=== PATIENT | male | born 1955 | race Caucasian/White ===

== ENCOUNTER → 2018-06-06 | Outpatient (CLI) | payer MEDICARE, MEDICAID ==
[~2018-06-06] MED LIST: ALBUAER3 IN; ALBUPOW26; AMLO5TAB13 PO; ASPI81CH43 PO; ATOR20TA50 PO; CHOL50007 PO; CLOP75TA41 PO; FOLI1TAB6 PO; FURO40TA PO; HYDR-531 PO; ISOS30TA4 PO; LOSA-46 PO; METO-169 PO; NITR0.4S29 SL; RESPMIS93; THIA100T10 PO; THIA100T30 PO
== END | disposition home or self-care (01) ==
LOC: EDBD → Rad HDHVI 09:20
PROVIDERS: ATTEND Internal Medicine Cardiovascular Disease
DX: I65.23 Occlusion and stenosis of bilateral carotid arteries (principal); I20.9 Angina pectoris, unspecified; J44.9 Chronic obstructive pulmonary disease, unspecified
CPT/HCPCS: 93306; 93880

== ENCOUNTER → 2018-06-07 | Outpatient (CLI) | payer MEDICARE, MEDICAID ==
[~2018-06-07] VITALS: Ht 175.3 cm; Wt 128.8 kg
[~2018-06-07] MED LIST changes: +ADENOSINE 108 MG in GIVE UN-DILUTED 0 ML IV ONE; +ADENOSINE 90 MG/30 ML INJ IV ONE; -ALBUAER3 IN; -AMLO5TAB13 PO; +AMLO5TAB2 PO; +ASPI81CH43 GT; -ASPI81CH43 PO; -CLOP75TA41 PO; -LOSA-46 PO; -THIA100T10 PO
== END | disposition home or self-care (01) ==
LOC: Rad HDHVI 14:02
PROVIDERS: ATTEND Internal Medicine Cardiovascular Disease
DX: I20.0 Unstable angina (principal); I25.2 Old myocardial infarction; I11.0 Hypertensive heart disease with heart failure; I50.23 Acute on chronic systolic (congestive) heart failure; J44.9 Chronic obstructive pulmonary disease, unspecified; Z87.891 Personal history of nicotine dependence
CPT/HCPCS: 78452; 93005; 96374; 96375; A9500; J0153

== ENCOUNTER → 2018-06-26 | Outpatient (CLI) | payer MEDICARE, MEDICAID ==
[~2018-06-26] MED LIST changes: -ADENOSINE 108 MG in GIVE UN-DILUTED 0 ML IV ONE; -ADENOSINE 90 MG/30 ML INJ IV ONE; +ALBUAER3 IN; +AMLO5TAB13 PO; -AMLO5TAB2 PO; -ASPI81CH43 GT; +ASPI81CH43 PO; +CLOP75TA41 PO; +LOSA-46 PO; +THIA100T10 PO
[2018-06-26 08:05] VITALS: BP 116/72
[2018-06-26 08:30] VITALS: BP 112/73
[2018-06-26 12:34] LABS: Basophils # (auto) 0 uL; Basophils % (auto) 0.4 % (0.0-2.0); Eosinophils # (auto) 0.2 uL; Eosinophils % (auto) 3.1 % (0.0-7.0); Hematocrit 46.6 % (41.0-53.0); Hemoglobin 16.3 g/dL (13.5-17.5); Lymphocytes # (auto) 1.5 uL; Lymphocytes % (auto) 20.2 % (10.0-50.0); Mean Corpuscular Hemoglobin 33.2 pg (28.0-32.0); Mean Corpuscular Hgb Conc. 34.9 g/dL (32.0-36.0); Mean Corpuscular Volume 95.3 fL (80.0-100.0); Monocytes # (auto) 0.6 uL; Monocytes % (auto) 7.7 % (0.0-12.0); Neutrophils % (auto) 68.6 % (37.0-80.0); Nucleated Red Blood Cells % 0.4 %; Platelet Count (auto) 105 10^3/uL (140-450); Red Cell Distribution Width 13.7 % (11.8-14.3); White Blood Cell 7.3 10^3/uL (4.4-10.8)
[2018-06-26 12:47] LABS: BUN/Creatinine Ratio 13.8; Calcium 9.1 mg/dL (8.5-10.1); Potassium 3.4 mmol/L (3.5-5.1)
[2018-06-26 12:48] LABS: INR 1.03 (0.9-1.15); Partial Thromboplastin Time 27.5 sec (23.78-33.04)
== END | disposition home or self-care (01) ==
LOC: EDBD → Rad HDHVI 07:54
PROVIDERS: ATTEND Internal Medicine Cardiovascular Disease
DX: Z01.818 Encounter for other preprocedural examination (principal); I10 Essential (primary) hypertension; D64.9 Anemia, unspecified; R79.1 Abnormal coagulation profile
CPT/HCPCS: 36415; 71046; 80048; 85025; 85610; 85730; 93005; G0463

== ENCOUNTER 2018-06-28 09:52 | Inpatient (IN) | payer MEDICARE, MEDICAID ==
[~2018-06-28] VITALS: Ht 175.3 cm; Wt 127.3 kg
[~2018-06-28 09:52] MED LIST changes: -ALBUPOW26; -CHOL50007 PO; -RESPMIS93; -THIA100T30 PO
[2018-06-28] MEDS ORDERED: IODIXANOL 320MG/ML 100ML BTL IV ONE (10:06)
[2018-06-28] MEDS ORDERED: LIDOCAINE 2%HCL (LOCAL ANESTH.) INJ 20ML MDV ONE (10:06)
[2018-06-28] MEDS ORDERED: IOHEXOL 350 MG/ML 100ML IJ ONE (10:08)
[2018-06-28] MEDS ORDERED: ANGIOMAX 250 MG VIAL IV ONE (10:20)
[2018-06-28] MEDS ORDERED: fentaNYL CITRATE 100 MCG/2 ML VL ONE (10:20)
[2018-06-28] MEDS ORDERED: SODIUM CHL 0.9% 50 ML ONE (10:21)
[2018-06-28] MEDS ORDERED: MIDAZOLAM HCL 1MG/1ML-2 ML VIAL ONE (10:21)
[2018-06-28] MEDS ORDERED: HYDROmorphone HCL 2 MG/ML VL ONE (10:40)
[2018-06-28] MEDS ORDERED: NITROGLYCERIN 0.4 MG SL TAB SL PRN (11:30)
[2018-06-28] MEDS ORDERED: ACETAMINOPHEN 500 MG TAB PO PRN (11:30)
[2018-06-28] MEDS ORDERED: ONDANSETRON HCL 4 MG/2 ML VIAL IV PRN (11:30)
[2018-06-28] MEDS ORDERED: HYDROcodone-ACET 5/325MG TAB PO PRN (11:30)
[2018-06-28] MEDS ORDERED: NITROGLYCERIN 0.4 MG SL TAB SL SCH (11:30)
[2018-06-28] MEDS ORDERED: MORPHINE SULF INJ 2 MG/ML SYRINGE 1ML IV PRN (11:30)
[2018-06-28 11:58] VITALS: BP 98/64
[2018-06-28] MEDS ORDERED: HYDROCODONE ACETAMINOPHEN PO SCH (12:00)
[2018-06-28 13:00] VITALS: BP 98/64
[2018-06-28] MEDS: HYDROcodone-ACET 10/325MG TAB PO PRN ×2 (15:24→19:57)
[2018-06-28 16:50] VITALS: BP 113/72
[2018-06-28] MEDS ORDERED: ALBUTEROL SULF 2.5 MG/0.5ML(0.5%) NEB SOLN NEB PRN (18:00)
[2018-06-28 21:40] VITALS: BP 118/75
[2018-06-28] MEDS ORDERED: ATORVASTATIN 20 MG TAB PO SCH (22:00)
[2018-06-28 22:13] VITALS: BP 118/75
[2018-06-29] MEDS: HYDROcodone-ACET 10/325MG TAB PO PRN ×3 (00:53→11:33)
[2018-06-29 04:46] VITALS: BP 113/67
[2018-06-29 09:00] VITALS: BP 98/64
[2018-06-29] MEDS ORDERED: CLOPIDOGREL BISULFATE 75 MG TAB PO SCH (10:00)
[2018-06-29] MEDS ORDERED: LOSARTAN POTASSIUM 50 MG TAB PO SCH (10:00)
[2018-06-29] MEDS ORDERED: ISOSORBIDE MONONITRATE 60 MG TAB PO SCH (10:00)
[2018-06-29] MEDS ORDERED: FUROSEMIDE 40 MG TAB PO SCH (10:00)
[2018-06-29] MEDS ORDERED: ASPirin 81 mg TAB PO SCH (10:00)
[2018-06-29] MEDS ORDERED: THIAMINE HCL 100 MG TAB PO SCH (10:00)
[2018-06-29] MEDS ORDERED: amLODIPine BESYLATE 5 MG TAB PO SCH (10:00)
[2018-06-29] MEDS ORDERED: FOLIC ACID 1 MG TAB PO SCH (10:00)
[2018-06-29] MEDS ORDERED: METOPROLOL SUCCINATE XL 50 MG TAB PO SCH (10:00)
[2018-06-29 13:00] VITALS: BP 111/66
[2018-06-29] MEDS ORDERED: MORPHINE SULFATE 4 MG/ML SYR/VIAL IV PRN (16:30)
[2018-06-29 16:38] VITALS: BP 107/61
== END 2018-06-29 18:18 | disposition home or self-care (01) | DRG 246 ==
LOC: EDBD → CATH 09:52 → TELE-WESTW 09:53
PROVIDERS: ADMIT Internal Medicine Cardiovascular Disease; ATTEND Internal Medicine Cardiovascular Disease
PROC: 027034Z Dilation of Coronary Artery, One Artery with Drug-eluting Intraluminal Device, Percutaneous Approach (ICD-10-PCS; principal; 2018-06-28)
PROC: 4A023N7 Measurement of Cardiac Sampling and Pressure, Left Heart, Percutaneous Approach (ICD-10-PCS; 2018-06-28)
PROC: B2111ZZ Fluoroscopy of Multiple Coronary Arteries using Low Osmolar Contrast (ICD-10-PCS; 2018-06-28)
PROC: B2151ZZ Fluoroscopy of Left Heart using Low Osmolar Contrast (ICD-10-PCS; 2018-06-28)
DX: I25.110 Atherosclerotic heart disease of native coronary artery with unstable angina pectoris (principal); I50.23 Acute on chronic systolic (congestive) heart failure; E78.5 Hyperlipidemia, unspecified; J44.9 Chronic obstructive pulmonary disease, unspecified; I73.9 Peripheral vascular disease, unspecified; Z87.891 Personal history of nicotine dependence; Z95.5 Presence of coronary angioplasty implant and graft; I11.0 Hypertensive heart disease with heart failure; I25.2 Old myocardial infarction; Z82.49 Family history of ischemic heart disease and other diseases of the circulatory system; Z86.73 Personal history of transient ischemic attack (TIA), and cerebral infarction without residual deficits
CPT/HCPCS: 36415; 71046; 80048; 85025; 85610; 85730; 87081; 92928; 93005; 93458; 99152; A6257; C1874; G0463; J2250; Q9967

== ENCOUNTER 2020-11-16 12:35 | Inpatient (IN) | payer MEDICAID, MEDICARE, OTHER ==
[~2020-11-16] VITALS: Ht 175.3 cm; Wt 78.5 kg
[~2020-11-16 12:35] MED LIST changes: +AMLO-489 PO; -AMLO5TAB13 PO; -CLOP75TA41 PO; +CLOP75TA70 PO; +FURO1TAB31 PO; -FURO40TA PO; -LOSA-46 PO; +LOSA-69 PO
[2020-11-16] MEDS ORDERED: ONDANSETRON HCL 4 MG/2 ML VIAL IV ONE (13:15)
[2020-11-16] MEDS ORDERED: MORPHINE SULFATE 4 MG/ML SYR/VIAL IV ONE ×2 (13:15→19:00)
[2020-11-16 13:19] LABS: Basophils # (auto) 0.1 10 ^3/uL (0-0.2); Basophils % (auto) 0.7 % (0.0-2.0); Eosinophils # (auto) 0.1 10 ^3/uL (0-0.8); Eosinophils % (auto) 0.6 % (0.0-7.0); Hematocrit 41.3 % (41.0-53.0); Hemoglobin 14.5 g/dL (13.5-17.5); Lymphocytes # (auto) 1.1 10 ^3/uL (0.4-5.4); Lymphocytes % (auto) 10.1 % (10.0-50.0); Mean Corpuscular Hemoglobin 32.4 pg (28.0-32.0); Mean Corpuscular Hgb Conc. 35.1 g/dL (32.0-36.0); Mean Corpuscular Volume 92.3 fL (80.0-100.0); Monocytes # (auto) 1.1 10 ^3/uL (0-1.3); Neutrophils # (auto) 8.9 10 ^3/uL (1.6-8.6); Neutrophils % (auto) 78.6 % (37.0-80.0); Nucleated Red Blood Cells % 0.2 %; Platelet Count (auto) 144 10^3/uL (140-450); Red Blood Cells 4.48 10^6/uL (4.5-5.90); Red Cell Distribution Width 13.6 % (11.8-14.3); White Blood Cell 11.3 10^3/uL (4.4-10.8)
[2020-11-16 13:37] LABS: Alanine Aminotransferase 42 U/L (16-61); Albumin 3.2 g/dL (3.4-5.0); Anion Gap 11 (5-15); Aspartate Aminotransferase 35 U/L (15-37); Blood Urea Nitrogen 16 mg/dL (7-18); Carbon Dioxide 23 mmol/L (21-32); Chloride 102 mmol/L (98-107); GFR African American 89 mL/min; GFR Non-African American 73 mL/min; Glucose 132 mg/dL (74-106); Potassium 3.4 mmol/L (3.5-5.1); Sodium 136 mmol/L (136-145)
[2020-11-16 13:45] LABS: Alkaline Phosphatase 92 U/L (45-117); Bilirubin, Total 1.5 mg/dL (0.2-1.0)
[2020-11-16 17:32] LABS: Urine Bacteria NONE SEEN /hpf (None Seen); Urine Blood Negative /uL (Negative); Urine Hyaline Cast FEW /lpf (0 - 2); Urine Mucus FEW (None Seen); Urine Specific Gravity 1.018 (1.001-1.035); Urine WBC 1 /hpf (0 - 3)
[2020-11-16] MEDS ORDERED: NITROGLYCERIN 0.4 MG SL TAB SL PRN (19:15)
[2020-11-16] MEDS ORDERED: ONDANSETRON HCL 4 MG/2 ML VIAL IV PRN (19:15)
[2020-11-16] MEDS ORDERED: MORPHINE SULF INJ 2 MG/ML SYRINGE 1ML IV PRN (19:15)
[2020-11-16] MEDS: D5W/SOD CHL 0.45%/KCL 20MEQ 1,000 ML IV SCH (20:00)
[2020-11-16] MEDS ORDERED: IOHEXOL 300 MG/ML 100ML BOTTLE IJ ONE (20:25)
[2020-11-17] MEDS: MORPHINE SULF INJ 2 MG/ML SYRINGE 1ML IV PRN ×3 (01:24→13:22)
[2020-11-17 05:00] VITALS: BP 124/77
[2020-11-17 07:45] VITALS: BP 121/76
[2020-11-17] MEDS: D5W/SOD CHL 0.45%/KCL 20MEQ 1,000 ML IV SCH (08:35)
[2020-11-17] MEDS ORDERED: PANTOPRAZOLE 40 MG TAB PO SCH (10:00)
[2020-11-17] MEDS ORDERED: THIAMINE HCL 100 MG TAB PO SCH (10:00)
[2020-11-17] MEDS ORDERED: ASPirin 81 mg TAB PO SCH (10:00)
[2020-11-17] MEDS ORDERED: METOPROLOL SUCCINATE XL 50 MG TAB PO SCH (10:00)
[2020-11-17] MEDS ORDERED: FOLIC ACID 1 MG TAB PO SCH (10:00)
[2020-11-17] MEDS ORDERED: ATORVASTATIN 20 MG TAB PO SCH (10:00)
[2020-11-17] MEDS ORDERED: amLODIPine BESYLATE 5 MG TAB PO SCH (10:00)
[2020-11-17] MEDS ORDERED: LOSARTAN POTASSIUM 50 MG TAB PO SCH (10:00)
[2020-11-17 13:00] VITALS: BP 113/75
[2020-11-17 13:39] VITALS: BP 113/75
== END 2020-11-17 14:15 | disposition home or self-care (01) | DRG 394 ==
LOC: ER 12:35 → TELE 12:36 → TELE-EAST 11-17 04:45
PROVIDERS: ADMIT Nurse Practitioner Acute Care; ATTEND Internal Medicine
DX: K65.4 Sclerosing mesenteritis (principal); I24.9 Acute ischemic heart disease, unspecified; K76.0 Fatty (change of) liver, not elsewhere classified; I10 Essential (primary) hypertension; F10.20 Alcohol dependence, uncomplicated; K74.60 Unspecified cirrhosis of liver; E87.6 Hypokalemia; E66.9 Obesity, unspecified; D72.829 Elevated white blood cell count, unspecified; E78.5 Hyperlipidemia, unspecified; I25.10 Atherosclerotic heart disease of native coronary artery without angina pectoris; I25.2 Old myocardial infarction; J44.9 Chronic obstructive pulmonary disease, unspecified; Z79.02 Long term (current) use of antithrombotics/antiplatelets; Z79.82 Long term (current) use of aspirin; Z79.899 Other long term (current) drug therapy; Z80.1 Family history of malignant neoplasm of trachea, bronchus and lung; Z82.49 Family history of ischemic heart disease and other diseases of the circulatory system; Z80.51 Family history of malignant neoplasm of kidney; Z85.038 Personal history of other malignant neoplasm of large intestine; Z87.891 Personal history of nicotine dependence; Z90.49 Acquired absence of other specified parts of digestive tract; Z95.5 Presence of coronary angioplasty implant and graft; Z68.25 Body mass index [BMI] 25.0-25.9, adult; N28.1 Cyst of kidney, acquired; Z20.822 Contact with and (suspected) exposure to COVID-19; R16.1 Splenomegaly, not elsewhere classified
CPT/HCPCS: 36415; 71045; 74177; 76700; 80053; 81001; 83605; 83690; 84484; 85025; 85652; 86141; 87426; 93005; 96374; 96375; 96376; G0378; J2405

== ENCOUNTER 2023-11-07 02:43 | Emergency (ER) | payer OTHER ==
[~2023-11-07] VITALS: Ht 175.3 cm; Wt 104.5 kg
[~2023-11-07 02:43] MED LIST changes: -AMLO-489 PO; +AMLO1TAB22 PO; -ASPI81CH43 PO; +FOLI-119 PO; -FOLI1TAB6 PO; +ISOS1TAB28 PO; -ISOS30TA4 PO; -LOSA-69 PO; +LOSA50TA46 PO; -METO-169 PO; +METO-289 PO
[2023-11-07 03:02] VITALS: BP 135/69; PULSE 66; RESP 16; TEMP 98
[2023-11-07 03:30] VITALS: O2SAT 95
[2023-11-07] MEDS ORDERED: TETRACAINE HCL 0.5% OPTH(EYE) SOLN 4ML LEFTEYE ONE (03:30)
[2023-11-07] MEDS ORDERED: FLUORESCEIN SOD OPTH TEST STRIP LEFTEYE ONE (03:30)
[2023-11-07] MEDS ORDERED: ERY05OO OP (03:39)
== END 2023-11-07 04:10 | disposition home or self-care (01) ==
LOC: ER 02:43
DX: S05.02XA Injury of conjunctiva and corneal abrasion without foreign body, left eye, initial encounter (principal); J44.9 Chronic obstructive pulmonary disease, unspecified; I25.2 Old myocardial infarction; Z86.73 Personal history of transient ischemic attack (TIA), and cerebral infarction without residual deficits; Z87.891 Personal history of nicotine dependence; Z79.2 Long term (current) use of antibiotics; Z79.899 Other long term (current) drug therapy; X58.XXXA Exposure to other specified factors, initial encounter; Y93.89 Activity, other specified; Y92.89 Other specified places as the place of occurrence of the external cause; Y99.8 Other external cause status

== ENCOUNTER 2025-02-05 15:22 | Emergency (ER) | payer OTHER ==
[~2025-02-05] VITALS: Ht 180.3 cm; Wt 110.0 kg
[~2025-02-05 15:22] MED LIST changes: +ERY05OO OP; +LOSA-534 PO; -LOSA50TA46 PO
[2025-02-05 16:10] VITALS: PULSE 46; RESP 10; O2SAT 95
[2025-02-05] MEDS: SODIUM CHLORIDE 0.9% 1,000 ML IV ONE ×2 (16:23→20:35)
[2025-02-05 16:29] LABS: Basophils # (auto) 0.1 10 ^3/uL (0-0.2); Basophils % (auto) 0.7 % (0.0-2.0); Eosinophils # (auto) 0.2 10 ^3/uL (0-0.8); Eosinophils % (auto) 2.2 % (0.0-7.0); Hemoglobin 13.8 g/dL (13.5-17.5); Lymphocytes # (auto) 1.7 10 ^3/uL (0.4-5.4); Lymphocytes % (auto) 22.9 % (10.0-50.0); Mean Corpuscular Hemoglobin 32.2 pg (28.0-32.0); Mean Corpuscular Hgb Conc. 35.3 g/dL (32.0-36.0); Mean Corpuscular Volume 91.2 fL (80.0-100.0); Monocytes # (auto) 0.8 10 ^3/uL (0-1.3); Monocytes % (auto) 10.6 % (0.0-12.0); Neutrophils # (auto) 4.6 10 ^3/uL (1.6-8.6); Neutrophils % (auto) 63.6 % (37.0-80.0); Nucleated Red Blood Cells % 0.1 %; Platelet Count (auto) 164 10^3/uL (140-450); Red Blood Cells 4.28 10^6/uL (4.5-5.90); Red Cell Distribution Width 13.1 % (11.8-14.3); White Blood Cell 7.3 10^3/uL (4.4-10.8)
[2025-02-05 16:37] LABS: Potassium 3.7 mmol/L (3.5-5.1); Sodium 142 mmol/L (136-145)
[2025-02-05 16:38] LABS: Anion Gap 7 (5-15); Calcium 9.5 mg/dL (8.7-10.4); Carbon Dioxide 27 mmol/L (20-31)
[2025-02-05 16:43] LABS: BUN/Creatinine Ratio 10.8 (10.0-20.0); Blood Urea Nitrogen 18 mg/dL (9-23)
[2025-02-05 16:44] LABS: Chloride 108 mmol/L (98-107); Glucose 110 mg/dL (74-106)
--- NOTE | 2025-02-05 16:47 | ED.PDOC ---
History of Present Illness HPI Comments 69-year-old male brought in by EMS from his primary physician's office where he was visiting for a follow-up on labs that were drawn 2 weeks ago. Patient was found to have low blood pressure in the 60s systolic, so his primary physician had him transferred by ambulance to our ER. Patient denies any chest pain, shortness of breath, dizziness, vision changes or focal weakness. He does note mild fatigue. Patient states he has a history of high blood pressure and takes isosorbide, metoprolol and amlodipine. Chief Complaint: Low Blood Pressure Time Seen by MD: 15:55 Primary Care Provider: RI Reviewed Notes: Nurses Notes, Medications, Allergies Allergies: Coded Allergies: Zolpidem (Verified Allergy, Unknown, 02/05/25) CONFUSION Home Meds Active Scripts Erythromycin (Erythromycin) 5 Mg/Gm Oin, 1 MG OP 6XD for 7 Days, #1 OIN 0 Refills Prov:SB GRAY 11/07/23 Reported Medications Albuterol Sulfate (VENTOLIN MDI) 90 Mcg Ih, 90 MCG IN Q6HP PRN for COPD for 30 Days, MCG 06/26/18 Thiamine Hcl (VITAMIN B-1) 100 Mg Tb, 100 MG PO DAILY 06/26/18 Losartan Potassium (Losartan Potassium) 50 Mg Tab, 1 TAB PO DAILY, #30 TAB 5 Refills 06/26/18 Clopidogrel Bisulfate (CLOPIDOGREL) 75 Mg Tab, 75 MG PO DAILY for 30 Days, MG 06/26/18 Metoprolol Succinate (Metoprolol Succinate Er) 50 Mg Tab, 50 MG PO DAILY, TAB 12/22/16 Furosemide (Lasix) 40 Mg Tab, 40 MG PO DAILY, TAB 12/22/16 Hydrocodone-Acetaminophen ([place] 10-325 mg) 1 Tab Tab, 1 TAB PO QIDP, TAB 12/22/16 Nitroglycerin (Nitrostat) 0.4 Mg Sub, 0.4 MG SL PRN 12/22/16 Folic Acid (Folic Acid) 1 Mg Tab, 1 MG PO DAILY for 30 Days, MG 12/22/16 Amlodipine Besylate (Amlodipine Besylate) 5 Mg Tab, 10 MG PO DAILY for 30 Days, MG 12/22/16 Atorvastatin Calcium (ATORVASTATIN CALCIUM) 20 Mg Tab, 1 TAB PO DAILY, #30 TAB 5 Refills 12/22/16 Isosorbide Mononitrate (Isosorbide Mononitrate Er) 30 Mg Tab, 30 MG PO DAILY for 30 Days, MG 12/22/16 Information Source: Patient Mode of Arrival: EMS Severity: Moderate Timing: Minutes Duration: Since onset, Minutes Prehospital treatment: None Past Medical History PAST MEDICAL HISTORY: COPD, CVA, LA Past Medical History (Other): Neuropathy bilateral legs Surgical History: PTCA Surgical History (Other): Stent x3, finger amputition, Left Knee, Left Shoulder Family History Family History: Reviewed,noncontributory to illness Social History Smoker: Non-Smoker Alcohol: Denies ETOH Use Drugs: Denies Drug Use Lives In: Home Constitutional: reports: others (Low BP, ); denies: chills, diaphoresis, fatigue, fever, malaise, sweats, weakness EENTM: denies: blurred vision, double vision, ear bleeding, ear discharge, ear drainage, ear pain, ear ringing, eye pain, eye redness, hearing loss, mouth pain, mouth swelling, nasal discharge, nose bleeding, nose congestion, nose pain, photophobia, tearing, throat pain, throat swelling, voice changes, others Respiratory: denies: cough, hemoptysis, orthopnea, SOB at rest, shortness of breath, SOB with excertion, stridor, wheezing, others Cardiovascular: denies: chest pain, dizzy spells, diaphoresis, Dyspnea on exertion, edema, irregular heart beat, left arm pain, lightheadedness, palpitations, PND, syncope, others Gastrointestinal: denies: abdomen distended, abdominal pain, blood streaked bowels, constipated, diarrhea, dysphagia, difficulty swallowing, hematemesis, melena, nausea, poor appetite, poor fluid intake, rectal bleeding, rectal pain, vomiting, others Genitourinary: denies: burning, dysuria, flank pain, frequency, hematuria, i ncontinence, penile discharge, penile sore, pain, testicle pain, testicle swelling, urgency, others Neurological: denies: dizziness, fainting, headache, left sided numbness, left sided weakness, numbness, paresthesia, pre-existing deficit, right sided numbness, right sided weakness, seizure, speech problems, tingling, tremors, weakness, others Musculoskeletal: denies: back pain, gout, joint pain, joint swelling, muscle pain, muscle stiffness, neck pain, others Integumetry: denies: bruises, change in color, change in hair/nails, dryness, laceration, lesions, lumps, rash, wounds, others Allergic/Immunocompromised: denies: Difficulty Healing, Frequent Infections, Hives, Itching, others Hematologic/Lymphatic: denies: anemia, blood clots, easy bleeding, easy bruising, swollen glands, others Endocrine: denies: excessive hunger, excessive sweating, excessive thirst, excessive urination, flushing, intolerance to cold, intolerance to heat, unexplained weight gain, unexplained weight loss, others Psychiatric: denies: anxiety, bipolar disorder, depression, hopeless, panic disorder, schizophrenia, sleepless, suicidal, others All Other Systems: Reviewed and Negative Physical Exam General Appearance: No Apparent Distress HEENT: Other (Vitals and face symmetric. Moist mucous membranes.) Neck: Full Range of Motion, Normal Inspection Respiratory: Lungs Clear, No Accessory Muscle Use, No Respiratory Distress, Normal Breath Sounds Cardiovascular: Bradycardia, No Edema, No JVD Breast Exam: Deferred Gastrointestinal: Non Tender, Soft Genitalia: Deferred Pelvic: Deferred Rectal: Deferred Extremities: Normal inspection, Normal range of motion, Non-tender, No pedal edema Neurologic: Alert (Oriented x4), Normal Affect, Normal Mood, Other (Ambulatory) Cerebellar Function: NOT DONE Reflexes: NOT DONE Skin: Dry, Normal Color, Warm Lymphatic: NOT DONE Was a procedure done? Was a procedure done?: No EKG EKG : Comments Sinus bradycardia, rate 48, ME prolonged at 202, QRS and QTC normal, normal axis, possible old anteroseptal infarct, no ST/T changes. Differential Dx Considerations may include: Arrhythmia, LA, infection, sepsis, dehydration/hypovolemia, beta-sushant overdose, electrolyte imbalance, among others X-Ray, Labs, Meds, VS Vital Signs Date Time Temp Pulse Resp B/P (MAP) Pulse Ox O2 Delivery O2 Flow Rate FiO2 02/05/25 21:00 44 14 109/50 (69) 93 02/05/25 19:30 98.5 43 12 113/62 (79) 94 98.5 02/05/25 19:30 47 12 95 Room Air* 0 21 02/05/25 18:01 97.9 46 18 98/57 (71) 83 97.9 02/05/25 17:30 48 14 99/55 (70) 94 02/05/25 17:00 47 12 96/54 (68) 95 02/05/25 16:52 48 17 82/45 (57) 91 02/05/25 16:10 47 02/05/25 16:10 97.5 46 10 87/46 (60) 95 97.5 02/05/25 16:10 46 10 95 Room Air* 0 21 02/05/25 15:30 97.1 50 18 96/63 (74) 94 97.1 02/05/25 15:25 48 Lab Test 02/05/25 17:55 02/05/25 17:26 02/05/25 16:20 Range/Units Urine Color Light-yellow Yellow Urine Clarity Clear Clear Urine pH 6.5 5.0-9.0 Urine Specific [place] 1.006 1.001-1.035 Urine Protein Negative Negative Urine Ketones Negative Negative Urine Blood Negative Negative /uL Urine Nitrite Negative Negative Urine Bilirubin Negative Negative Urine Urobilinogen Normal Negative mg/dL Urine Leukocyte Esterase Negative Negative /uL Urine RBC None seen 0 - 3 /hpf Urine Microscopic WBC < 1 0-3 /HPF Urine Squamous Epithelial Cells Few <5 /hpf Urine Bacteria None seen None Seen /hpf Urine Glucose Normal Normal mg/dL Troponin I High Sensitivity 6 6 </=54 ng/L White Blood Count 7.3 4.4-10.8 10^3/uL Red Blood Count 4.28 L 4.5-5.90 10^6/uL Hemoglobin 13.8 13.5-17.5 g/dL Hematocrit 39.0 L 41.0-53.0 % Mean Corpuscular Volume 91.2 80.0-100.0 fL Mean Corpuscular Hemoglobin 32.2 H 28.0-32.0 pg Mean Corpuscular Hemoglobin Concent 35.3 32.0-36.0 g/dL Red Cell Distribution Width 13.1 11.8-14.3 % Platelet Count 164 140-450 10^3/uL Mean Platelet Volume 8.5 6.9-10.8 fL Neutrophils (%) (Auto) 63.6 37.0-80.0 % Lymphocytes (%) (Auto) 22.9 10.0-50.0 % Monocytes (%) (Auto) 10.6 0.0-12.0 % Eosinophils (%) (Auto) 2.2 0.0-7.0 % Basophils (%) (Auto) 0.7 0.0-2.0 % Neutrophils # (Auto) 4.6 1.6-8.6 10 ^3/uL Lymphocytes # (Auto) 1.7 0.4-5.4 10 ^3/uL Monocytes # (Auto) 0.8 0-1.3 10 ^3/uL Eosinophils # (Auto) 0.2 0-0.8 10 ^3/uL Basophils # (Auto) 0.1 0-0.2 10 ^3/uL Nucleated Red Blood Cells 0.1 % Sodium Level 142 136-145 mmol/L Potassium Level 3.7 3.5-5.1 mmol/L Chloride Level 108 H 98-107 mmol/L Carbon Dioxide Level 27 20-31 mmol/L Anion Gap 7 5-15 Blood Urea Nitrogen 18 9-23 mg/dL Creatinine 1.67 H 0.700-1.30 mg/dL Glomerular Filtration Rate Calc 44 >90 mL/min BUN/Creatinine Ratio 10.8 10.0-20.0 Serum Glucose 110 H 74-106 mg/dL Lactic Acid Level 1.3 0.4-2.0 mmol/L Calcium Level 9.5 8.7-10.4 mg/dL B-Type Natriuretic Peptide 25.53 0-100 pg/mL Current Medications Medications (Trade) Dose Ordered Sig/Mabel Route Start Time Stop Time Status Last Admin Sodium Chloride 1,000 ml @ 1,000 mls/hr Q1H ONCE IV 02/05/25 16:15 02/05/25 17:14 DC 02/05/25 16:23 Sodium Chloride 1,000 ml @ 1,000 mls/hr Q1H ONCE IV 02/05/25 19:15 02/05/25 20:14 DC 02/05/25 20:35 Oxycodone/ Acetaminophen (Percocet 5/ 325MG Tablet) 1 tab ONCE ONCE PO 02/05/25 20:45 02/05/25 20:46 DC 02/05/25 21:40 PROCEDURE(s): CXRP - CHEST PORTABLE REASON: ns ORDER NUMBER(s): [id number], ACCESSION NUMBER(s): [id number] EXAM: XR Chest, 1 View CLINICAL INDICATION: ns TECHNIQUE: Frontal view of the chest. COMPARISON: CHEST PORTABLE on DOS: 11/16/20 FINDINGS: LUNGS AND PLEURAL SPACES: Unremarkable. No consolidation. No pneumothorax. HEART: Unremarkable. No cardiomegaly. MEDIASTINUM: Unremarkable. Normal mediastinal contour. BONES/JOINTS: Unremarkable. No acute fracture. OTHER FINDINGS: . None. IMPRESSION: No acute cardiopulmonary process. X-Ray, Labs, Meds, VS Comment 69-year-old male with a history of hypertension, thyroid disease, mi x3, CVA x3 and TIA referred by primary physician for evaluation of hypotension and fatigue. Patient also states he was told by his primary doctor that his potassium was low. Vitals remarkable for BP 96/63 Exam unremarkable Rhythm strip independently interpreted by me: Sinus bradycardia, rate 48, no ectopy. Chest x-ray IMPRESSION: No acute cardiopulmonary process. CBC unremarkable, metabolic panel remarkable for creatinine 1.67, lactate normal, troponin negative x2, BNP normal, UA negative Patient treated with the following in the ED: 2 L 0.9 normal saline IV bolus. On re-evaluation, patient's blood pressure is 110/49. Heart rate is 46. Plan was to admit the patient for observation and Cardiology evaluation. Case discussed with Dr. Thomas, who requested the patient be discharged home. She will arrange for the patient to follow-up with cardiology as an outpatient. I advised the patient to discontinue metoprolol until further evaluation by Cardiology. He was advised to follow-up with his primary physician tomorrow, and to return immediately to ER or call 911 for chest pain, shortness of breath, dizziness, weakness or any other concern. Time of 1ST Reevaluation: 16:25 Reevaluation 1ST: Unchanged Time of 2ND Reevaluation: 21:47 Reevaluation 2ND: Improved Patient Education/Counseling: Diagnosis, Treatment, Prognosis Family Education/Counseling: No Family Present Departure 1 Departure Time of Disposition: 19:15 Impression: Primary Impression: Bradycardia Additional Impression: Transient hypotension Disposition: 01 HOME / SELF CARE / HOMELESS Condition: Stable Additional Instructions: Your blood tests were unremarkable. Your chest x-ray was normal. Your EKG showed you have a slow heart rate. Your blood pressure is now stable. Discontinue metoprolol until evaluated by a water aerobics instructor. Your blood pressure at home prior to taking your blood pressure medication. If your blood pressure is below 95 systolic, do not take your blood pressure medication and contact your doctor. Follow-up with your primary doctor in 1-2 days. Return to ER for chest pain, shortness of breath, weakness, dizziness, vision changes or any other concern. Discharged With: Self Critical Care Note Critical Care Time?: No Stability Stability form required: No Heart Score Heart Score: Heart Score Response (Comments) Value History N/A 0 EKG N/A 0 Age N/A 0 Risk Factors N/A 0 Troponin N/A 0 Total 0 I personally scribed for ARELY SINGH MD ([email or web address]) on 02/05/25 at 16:47. Electronically submitted by Fransisco Meléndez ([employer]). I personally scribed for ARELY SINGH MD ([email or web address]) on 02/05/25 at 17:36. Electronically submitted by Fransisco Meléndez ([email or web address]). ARELY SINGH MD Feb 05, 2025 16:47
--- NOTE | 2025-02-05 16:50 | DVH ---
EXAM: XR Chest, 1 View CLINICAL INDICATION: ns TECHNIQUE: Frontal view of the chest. COMPARISON: CHEST PORTABLE on DOS: 11/16/20 FINDINGS: LUNGS AND PLEURAL SPACES: Unremarkable. No consolidation. No pneumothorax. HEART: Unremarkable. No cardiomegaly. MEDIASTINUM: Unremarkable. Normal mediastinal contour. BONES/JOINTS: Unremarkable. No acute fracture. OTHER FINDINGS: . None. IMPRESSION: No acute cardiopulmonary process.
[2025-02-05 18:04] LABS: Urine Bacteria None Seen /hpf (None Seen)
[2025-02-05 18:21] LABS: Urine Blood Negative /uL (Negative); Urine Clarity Clear (Clear); Urine Color Light-Yellow (Yellow); Urine Protein, UAD Negative (Negative); Urine Specific Gravity 1.006 (1.001-1.035); Urine Squamous Epithelial Cell FEW /hpf (<5); Urine Urobilinogen Normal (Negative); Urine WBC < 1 /HPF (0-3); Urine pH 6.5 (5.0-9.0)
--- NOTE | 2025-02-05 18:40 | ECG ---
[facility] Test Date: 2025-02-05 Test Time: 15:23:45 Pat Name: BINH HARE Department: ED Room: Gender: M Director Of Diagnostic Imaging: KARON : 1955 Requested By: ARELY ALLEN Order Number: [id number] Reading MD: Rhys Ott Measurements Intervals [place] Rate: 48 P: 80 MN: 202 QRS: 49 QRSD: 101 T: 48 QT: 472 QTc: 422 Interpretive Statements Sinus bradycardia Anterior infarct, old Electronically Signed On 02-06-2025 8:37:42 PDT by Rhys Ott Please click the below link to view image of tracing.
[2025-02-05 19:30] VITALS: PULSE 47; RESP 12; O2SAT 95
[2025-02-05 21:00] VITALS: BP 109/50; PULSE 44; RESP 14; O2SAT 93
[2025-02-05] MEDS: OXYCODONE W/ ACETAMINOPHEN 5/325MG TABLET PO ONE (21:40)
--- NOTE | 2025-02-06 13:00 | DVHDS2 ---
Physician Discharge Progress N Final Diagnosis: SInus bradycardia Operations or Procedures: Operations or Procedures none Other Interventions Other Interventions EKG, Lab results, CXR Consultations: Consultations none Commentary: Commentary 69 y.o. male with HTN (takes Metoprolol, Amlodipine, Isosorbide) was referred from his primary physician's office for further evaluation after they checked his blood pressure and found that he was hypotensive. Patient visited his MD to follow up his lab results that were drawn 2 weeks ago. Patient stated that he felt tired but denied any other complaints. On arrival patient's BP was 82/45. Patient was also was found to have sinus bradycardia on EKG. He was given 2L of NS and his BP normalized. His condition remained stable and he was discharged home with recommendation to f/u with a photographer apprentice and hold Metoprolol until then. Condition on Discharge: Stable Disposition: Home SNF Discharge Will this Physician continue t: No Discharge Instructions: Diet: Cardiac 2g Na,low cholest Activity: No Restrictions, As Tolerated Follow Up/Referral: Cardiology appointment will be scheduled by [facility] Medications: Continue home medications except Metoprolol. Follow Up Care: Discharge Statement: "Patient was advised to return to the ER or call 911 if any headaches, dizziness, shortness of breath, chest pain, abdominal pain, bleeding, fevers, or worsening of medical condition. Patient was counseled about treatment plan, medications, possible side effects, patientverbalized understanding. All questions were answered to the best of my ability. This discharge took greater then 30 minutes in planning, reviewing documentation, counseling the patient, and discussing with other team members." SUSY SAUL MD February 06, 2025 13:00
== END 2025-02-05 22:14 | disposition home or self-care (01) ==
LOC: EDBD 15:22 → ER 15:26
DX: R00.1 Bradycardia, unspecified (principal); I95.89 Other hypotension; I10 Essential (primary) hypertension; J44.9 Chronic obstructive pulmonary disease, unspecified; I25.2 Old myocardial infarction; Z79.899 Other long term (current) drug therapy; Z79.02 Long term (current) use of antithrombotics/antiplatelets; Z98.890 Other specified postprocedural states; Z88.1 Allergy status to other antibiotic agents
CPT/HCPCS: 36415; 71045; 80048; 81001; 83605; 83880; 84484; 85025; 93005; 96360; 96361; 99285; J7030

== ENCOUNTER 2025-09-12 21:04 | Emergency (ER) | payer OTHER ==
[~2025-09-12] VITALS: Ht 175.3 cm; Wt 104.5 kg
--- NOTE | 2025-09-12 21:20 | ED.PDOC ---
HPI Comments HPI: Poor Historian. 70-year-old male complains midsternal chest pain nonradiating with the associated shortness of breath that happened today after minimal exertion. Patient has been having chest pain for the last five months but got worse today. He is waiting to be seen by Cardiology again for additional coronary stents placement. He already has three stents in place. Patient does not know if he is on blood thinners or not. Past Medical History: Hypertension, hyperlipidemia, coronary artery disease, Past Surgical History: Cardiac stents REVIEW OF SYSTEMS: CONSTITUTIONAL: Denies acute: fever, diaphoresis, chills, generalized weakness. HEAD: Denies acute: headache, photophobia Eyes: Denies acute: Double vision, vision loss, eye pain, eye discharge. EARS: Denies acute: tinnitus, hearing loss, ear discharge, ear pain, THROAT: Denies acute: sore throat, swelling, difficulty swallowing , pain with swallowing, change in voice. NECK: Denies acute: neck pain, neck swelling, stiff neck. HEART: Denies acute : , palpitations, LUNGS: Denies acute: wheezing, cough, hemoptysis ABDOMEN: Denies acute: abdominal pain, Nausea, Vomiting, diarrhea, melena , hematemesis, hematochezia SKIN: Denies acute: rash, redness, lesions, itchiness. EXTREMITIES: Denies acute: calf pain, numbness, tingling, weakness, denies pain in extremity. Denies acute: Low back pain. Neuro: Denies acute: focal neurological deficit, motor or sensory focal neurological deficit, tremors, seizure like activity, confusion, dizziness, change in mental status, loss of bowel or bladder function, cauda equina like symptoms. : Denies acute: dysuria, hematuria, flank pain, increase in urinary frequency. PSYCH: Denies acute: hallucination, suicidal ideation, homicidal ideation. PHYSICAL EXAM: General: ----mild----acute distress, awake and alert. Head: normocephalic, atraumatic. No raccoon's eyes, no cuadra sign. Neck: supple, trachea is midline, no swelling. Throat: Normal phonation. Eyes:, no erythema, no purulent discharge, no proptosis, no icterus. Heart: regular rate, regular rhythm, no significant murmur appreciated. Lungs: no apparent respiratory distress, Able to speak in full sentences. No wheezing, no rhonchi, no crackles. No stridors Clear to auscultation bilaterally. Abdomen: non tender to palpation, non distended, soft, no guarding, no rebound, + bowel sounds. Obese Neuro: Awake, Alert, oriented to name, self, situation, follows commands GCS=15. Speech is normal. Skin: no petechia, no purpura, no cyanosis, non-pale, not jaundice. Lower extremities: --trace bilateral - Pitting edema no deformity, no focal swelling, no calf TTP. Makes eye contact. moves all four extremities. Face: no apparent facial droop. Ambulating in the ED independently. ED COURSE: DISCLAIMER: This medical document was created using an electronic medical record system with voice recognition software and computerized dictation system. Although this document has been carefully reviewed, there might still be some phonetic and typographical errors. Occasional wrong-word or "sound-alike" substitutions may have occurred due to the inherent limitations of voice recognition software. These areas are purely typographical due to imperfections of the software programs and do not reflect any compromise in the patient's medical care. Please read the chart carefully and recognize, using context, where these substitutions have occurred. Chief Complaint: Chest Pain Time Seen by MD: 21:11 Primary Care Provider: PA Reviewed Notes: Allergies Allergies: Coded Allergies: Zolpidem (Verified Allergy, Unknown, 02/05/25) CONFUSION Home Meds Active Scripts Erythromycin (Erythromycin) 5 Mg/Gm Oin, 1 MG OP 6XD for 7 Days, #1 OIN 0 Refills Prov:SB GRAY 11/07/23 Reported Medications Albuterol Sulfate (VENTOLIN MDI) 90 Mcg Ih, 90 MCG IN Q6HP PRN for COPD for 30 Days, MCG 06/26/18 Thiamine Hcl (VITAMIN B-1) 100 Mg Tb, 100 MG PO DAILY 06/26/18 Losartan Potassium (Losartan Potassium) 50 Mg Tab, 1 TAB PO DAILY, #30 TAB 5 Refills 06/26/18 Clopidogrel Bisulfate (CLOPIDOGREL) 75 Mg Tab, 75 MG PO DAILY for 30 Days, MG 06/26/18 Metoprolol Succinate (Metoprolol Succinate Er) 50 Mg Tab, 50 MG PO DAILY, TAB 12/22/16 Furosemide (Lasix) 40 Mg Tab, 40 MG PO DAILY, TAB 12/22/16 Hydrocodone-Acetaminophen ([place] 10-325 mg) 1 Tab Tab, 1 TAB PO QIDP, TAB 12/22/16 Nitroglycerin (Nitrostat) 0.4 Mg Sub, 0.4 MG SL PRN 12/22/16 Folic Acid (Folic Acid) 1 Mg Tab, 1 MG PO DAILY for 30 Days, MG 12/22/16 Amlodipine Besylate (Amlodipine Besylate) 5 Mg Tab, 10 MG PO DAILY for 30 Days, MG 12/22/16 Atorvastatin Calcium (ATORVASTATIN CALCIUM) 20 Mg Tab, 1 TAB PO DAILY, #30 TAB 5 Refills 12/22/16 Isosorbide Mononitrate (Isosorbide Mononitrate Er) 30 Mg Tab, 30 MG PO DAILY for 30 Days, MG 12/22/16 Information Source: Patient Mode of Arrival: Ambulatory Past Medical History PAST MEDICAL HISTORY: COPD, CVA, NC Surgical History: PTCA Family History Family History: Reviewed,noncontributory to illness Social History Smoker: Non-Smoker Alcohol: Denies ETOH Use Drugs: Denies Drug Use Lives In: Home Was a procedure done? Was a procedure done?: No CP Differential Dx Differential Diagnosis: N/A Differential Diagnosis: Other (Ddx include but not limitied to gastritis, musculoskeletal pain, radiculopathy, atypical chest pain, dissection, aneurysm, ACS, unstable angina, hiatal hernia, GERD, anxiety, costochondritis, PE, p neumothroax, neoplasm, cardiac ischemia, drug abuse, anemia.) X-Ray, Labs, Meds, VS Vital Signs Date Time Temp Pulse Resp B/P (MAP) Pulse Ox O2 Delivery O2 Flow Rate FiO2 09/13/25 01:09 98.3 62 19 128/83 (98) 94 98.3 09/12/25 21:07 98.1 73 20 128/65 94 98.1 Lab Test 09/13/25 00:16 09/12/25 22:16 09/12/25 21:16 Range/Units Troponin I High Sensitivity 19 17 17 </=54 ng/L White Blood Count 8.7 4.4-10.8 10^3/uL Red Blood Count 4.76 4.5-5.90 10^6/uL Hemoglobin 15.6 13.5-17.5 g/dL Hematocrit 44.3 41.0-53.0 % Mean Corpuscular Volume 93.1 80.0-100.0 fL Mean Corpuscular Hemoglobin 32.8 H 28.0-32.0 pg Mean Corpuscular Hemoglobin Concent 35.2 32.0-36.0 g/dL Red Cell Distribution Width 13.6 11.8-14.3 % Platelet Count 170 140-450 10^3/uL Mean Platelet Volume 8.3 6.9-10.8 fL Neutrophils (%) (Auto) 60.6 37.0-80.0 % Lymphocytes (%) (Auto) 28.2 10.0-50.0 % Monocytes (%) (Auto) 9.2 0.0-12.0 % Eosinophils (%) (Auto) 1.5 0.0-7.0 % Basophils (%) (Auto) 0.5 0.0-2.0 % Neutrophils # (Auto) 5.3 1.6-8.6 10 ^3/uL Lymphocytes # (Auto) 2.5 0.4-5.4 10 ^3/uL Monocytes # (Auto) 0.8 0-1.3 10 ^3/uL Eosinophils # (Auto) 0.1 0-0.8 10 ^3/uL Basophils # (Auto) 0 0-0.2 10 ^3/uL Nucleated Red Blood Cells 0.0 % Sodium Level 142 136-145 mmol/L Potassium Level 3.9 3.5-5.1 mmol/L Chloride Level 108 H 98-107 mmol/L Carbon Dioxide Level 20 20-31 mmol/L Anion Gap 14 5-15 Blood Urea Nitrogen 28 H 9-23 mg/dL Creatinine 1.15 0.700-1.30 mg/dL Glomerular Filtration Rate Calc 68 >90 mL/min BUN/Creatinine Ratio 24.3 H 10.0-20.0 Serum Glucose 87 74-106 mg/dL Calcium Level 9.4 8.7-10.4 mg/dL B-Type Natriuretic Peptide 47.27 0-100 pg/mL Current Medications Medications (Trade) Dose Ordered Sig/Mabel Route Start Time Stop Time Status Last Admin Aspirin (Ecotrin Enteric Coated Tablet) 325 mg ONCE ONCE PO 09/12/25 21:30 09/12/25 21:31 DC 09/13/25 01:[address] [address] Ph: [phone] DIAGNOSTIC IMAGING Diagnostic Imaging Report : [id number] Signed PATIENT: BINH HARE ACCT: [id number] UNIT: [id number] : 1955 LOC: ER ROOM / BED: / AGE / SEX: 70 / M ADM STATUS: REG ER SERVICE 54 ORDERING PHYSICIAN: YVONNE THOMSON MD PROCEDURE(s): CXRP - CHEST PORTABLE REASON: cp ORDER NUMBER(s): [id number], ACCESSION NUMBER(s): [id number] CLINICAL HISTORY: cp TECHNIQUE: 1 view of the chest was obtained. WID: COMPARISON: XY CHEST PORTABLE on DOS: 02/05/25, CHEST PORTABLE on DOS: 11/16/20 FINDINGS: Lungs: clear Cardiomediastinal silhouette: normal in size Bones: No acute osseous abnormality. Imaged Upper Abdomen: unremarkable. IMPRESSION: NO ACUTE CARDIOPULMONARY PROCESS. ATED BY: KASH HANKINS MD DICTATED DATE/TIME: 09/12/252304 SIGNED BY: KASH HANKINS MD SIGNED DATE/TIME: 09/12/252304 CC: Time of 1ST Reevaluation: 23:56 (The case was discussed with the admitting team (HPI, physical exam, labs and diagnostic tests that were available at the time of disposition, ED course, treatment plan) on the phone. They agreed to evaluate the patient and assume care of this patient from this point forward. --- Meme) Reevaluation 1ST: Improved Patient Education/Counseling: Diagnosis, Treatment Family Education/Counseling: No Family Present Comments MDM: patient presented with the above HPI.--cardiac----workup was initiated. patient was found with the above mentioned diagnosis. the following medications were ordered: please refer to order lists of meds and tests obtained by myself Dr. Hernandez. Patient ED course and VS have been stabilized. Patient has been reassessed in the ED and remained in a stable condition. Pertinent incidental findings were discussed with the patient and/or family. Patient/family voices understanding and is agreeable with plan. Patient has been observed in the ED adequate length of time to insure improvement/stability. Escalation of care considered: Consideration of escalation to observation or admission Patient was ADMITTED to the medicine team for further evaluation and treatment of their presentation. However I was later informed that the patient was discharged by the hospitalist team All the reports of any imaging studies that were ordered by myself were reviewed by myself. Departure 1 Departure Time of Disposition: 01:27 Impression: Primary Impression: Chest pain Disposition: ADMITTED INPATIENT Admit to: Tele Condition: Guarded Discharged With: Self Critical Care Note Critical Care Time?: No Heart Score Heart Score: Heart Score Response (Comments) Value History Moderate Suspicious 1 EKG Normal 0 Age >65 2 Risk Factors >3 or Hx ASHD 2 Troponin Normal limit 0 Total 5 EVER HERNANDEZ DO Sep 12, 2025 21:20
[2025-09-12 21:42] LABS: Hematocrit 44.3 % (41.0-53.0); Hemoglobin 15.6 g/dL (13.5-17.5); Mean Corpuscular Hemoglobin 32.8 pg (28.0-32.0); Mean Corpuscular Volume 93.1 fL (80.0-100.0); Nucleated Red Blood Cells % 0.0 %
[2025-09-12 21:49] LABS: Potassium 3.9 mmol/L (3.5-5.1); Sodium 142 mmol/L (136-145)
[2025-09-12 21:50] LABS: Anion Gap 14 (5-15); Calcium 9.4 mg/dL (8.7-10.4); Carbon Dioxide 20 mmol/L (20-31); Chloride 108 mmol/L (98-107)
[2025-09-12 21:55] LABS: Blood Urea Nitrogen 28 mg/dL (9-23); Glucose 87 mg/dL (74-106)
[2025-09-12 22:05] LABS: BUN/Creatinine Ratio 24.3 (10.0-20.0)
--- NOTE | 2025-09-12 23:04 | DVH ---
CLINICAL HISTORY: cp TECHNIQUE: 1 view of the chest was obtained. WID: COMPARISON: XY CHEST PORTABLE on DOS: 02/05/25, CHEST PORTABLE on DOS: 11/16/20 FINDINGS: Lungs: clear Cardiomediastinal silhouette: normal in size Bones: No acute osseous abnormality. Imaged Upper Abdomen: unremarkable. IMPRESSION: NO ACUTE CARDIOPULMONARY PROCESS.
--- NOTE | 2025-09-12 23:42 | DVHINCON2 ---
Date of service: Sep 12, 2025 Referring Physician Milena Reason for Consultation Chest pain History of Present Illness This is a 70-year-old male with a PMH of CAD with multiple stents, HTN, HLD, Chronic angina, Hypothyroidism, COPD and Cirrhosis who presents to the ED with complaints of midsternal chest pain nonradiating with the associated shortness of breath that happened today after minimal exertion. Patient has been having chest pain for the last five months but got worse today. He is waiting to be seen by Cardiology again for additional coronary stents placement. He already has three stents in place. Patient does not know if he is on blood thinners or not. CBC normal, Creatinine 1.2, Trops 19. Chest x-ray shows no acute pathology. EKG is NSR. I am asked to consult on this patient. Family History: Cancer G8 MOTHER (oatcell ) G8 FATHER (kidney CA with mets to lungs) Family history: Cardiovascular disease G8 MOTHER, Onset:50's - 60 G8 FATHER, Onset:50's - 60 Malignant neoplasm of lung Allergies: Coded Allergies: Zolpidem (Verified Allergy, Unknown, 02/05/25) CONFUSION Home Meds Active Scripts Erythromycin (Erythromycin) 5 Mg/Gm Oin, 1 MG OP 6XD for 7 Days, #1 OIN 0 Refills Prov:SB GRAY 11/07/23 Reported Medications Albuterol Sulfate (VENTOLIN MDI) 90 Mcg Ih, 90 MCG IN Q6HP PRN for COPD for 30 Days, MCG 06/26/18 Thiamine Hcl (VITAMIN B-1) 100 Mg Tb, 100 MG PO DAILY 06/26/18 Losartan Potassium (Losartan Potassium) 50 Mg Tab, 1 TAB PO DAILY, #30 TAB 5 Refills 06/26/18 Clopidogrel Bisulfate (CLOPIDOGREL) 75 Mg Tab, 75 MG PO DAILY for 30 Days, MG 06/26/18 Metoprolol Succinate (Metoprolol Succinate Er) 50 Mg Tab, 50 MG PO DAILY, TAB 12/22/16 Furosemide (Lasix) 40 Mg Tab, 40 MG PO DAILY, TAB 12/22/16 Hydrocodone-Acetaminophen ([place] 10-325 mg) 1 Tab Tab, 1 TAB PO QIDP, TAB 12/22/16 Nitroglycerin (Nitrostat) 0.4 Mg Sub, 0.4 MG SL PRN 3/16/17 Folic Acid (Folic Acid) 1 Mg Tab, 1 MG PO DAILY for 30 Days, MG 12/22/16 Amlodipine Besylate (Amlodipine Besylate) 5 Mg Tab, 10 MG PO DAILY for 30 Days, MG 12/22/16 Atorvastatin Calcium (ATORVASTATIN CALCIUM) 20 Mg Tab, 1 TAB PO DAILY, #30 TAB 5 Refills 12/22/16 Isosorbide Mononitrate (Isosorbide Mononitrate Er) 30 Mg Tab, 30 MG PO DAILY for 30 Days, MG 12/22/16 Review of Systems CONSTITUTIONAL: Denies acute: fever, diaphoresis, chills, generalized weakness. HEAD: Denies acute: headache, photophobia Eyes: Denies acute: Double vision, vision loss, eye pain, eye discharge. EARS: Denies acute: tinnitus, hearing loss, ear discharge, ear pain, THROAT: Denies acute: sore throat, swelling, difficulty swallowing , pain with swallowing, change in voice. NECK: Denies acute: neck pain, neck swelling, stiff neck. HEART: Denies acute : , palpitations, LUNGS: Denies acute: wheezing, cough, hemoptysis ABDOMEN: Denies acute: abdominal pain, Nausea, Vomiting, diarrhea, melena , hematemesis, hematochezia SKIN: Denies acute: rash, redness, lesions, itchiness. EXTREMITIES: Denies acute: calf pain, numbness, tingling, weakness, denies pain in extremity. Denies acute: Low back pain. Neuro: Denies acute: focal neurological deficit, motor or sensory focal neurological deficit, tremors, seizure like activity, confusion, dizziness, change in mental status, loss of bowel or bladder function, cauda equina like symptoms. : Denies acute: dysuria, hematuria, flank pain, increase in urinary frequency. PSYCH: Denies acute: hallucination, suicidal ideation, homicidal ideation. Vital Signs Vital Signs Date Time Temp Pulse Resp B/P (MAP) Pulse Ox O2 Delivery O2 Flow Rate FiO2 09/12/25 21:07 98.1 73 20 128/65 94 98.1 Physical Exam GENERAL: Alert and oriented x 3. No acute distress. EYES: PERRL, EOMI. Anicteric. HENT: Moist mucous membranes. LUNGS: Clear to auscultation bilaterally. CARDIOVASCULAR: Regular rate and rhythm. ABDOMEN: Soft, nontender and nondistended. EXTREMITIES: No edema. NEUROLOGIC: No focal neurological deficits. SKIN: Warm, dry. Labs/Diagnostic Data Labs Test 09/12/25 22:16 09/12/25 21:16 Range/Units Troponin I High Sensitivity 17 </=54 ng/L White Blood Count 8.7 4.4-10.8 10^3/uL Red Blood Count 4.76 4.5-5.90 10^6/uL Hemoglobin 15.6 13.5-17.5 g/dL Hematocrit 44.3 41.0-53.0 % Mean Corpuscular Volume 93.1 80.0-100.0 fL Mean Corpuscular Hemoglobin 32.8 H 28.0-32.0 pg Mean Corpuscular Hemoglobin Concent 35.2 32.0-36.0 g/dL Red Cell Distribution Width 13.6 11.8-14.3 % Platelet Count 170 140-450 10^3/uL Mean Platelet Volume 8.3 6.9-10.8 fL Neutrophils (%) (Auto) 60.6 37.0-80.0 % Lymphocytes (%) (Auto) 28.2 10.0-50.0 % Monocytes (%) (Auto) 9.2 0.0-12.0 % Eosinophils (%) (Auto) 1.5 0.0-7.0 % Basophils (%) (Auto) 0.5 0.0-2.0 % Neutrophils # (Auto) 5.3 1.6-8.6 10 ^3/uL Lymphocytes # (Auto) 2.5 0.4-5.4 10 ^3/uL Monocytes # (Auto) 0.8 0-1.3 10 ^3/uL Eosinophils # (Auto) 0.1 0-0.8 10 ^3/uL Basophils # (Auto) 0 0-0.2 10 ^3/uL Nucleated Red Blood Cells 0.0 % Sodium Level 142 136-145 mmol/L Potassium Level 3.9 3.5-5.1 mmol/L Chloride Level 108 H 98-107 mmol/L Carbon Dioxide Level 20 20-31 mmol/L Anion Gap 14 5-15 Blood Urea Nitrogen 28 H 9-23 mg/dL Creatinine 1.15 0.700-1.30 mg/dL Glomerular Filtration Rate Calc 68 >90 mL/min BUN/Creatinine Ratio 24.3 H 10.0-20.0 Serum Glucose 87 74-106 mg/dL Calcium Level 9.4 8.7-10.4 mg/dL B-Type Natriuretic Peptide 47.27 0-100 pg/mL Assessment Angina. CAD with multiple stents. HTN. HLD. Hypothyroidism. COPD. Plan/Recommendation I agree with your ongoing assessment and care of plan. Aspirin. Cardiac clear for discharge. The patient is advised for outpatient follow up on Monday at my office. Additional plan as per the hospital course. A total of 45 minutes was spent reviewing the patient record, examining the patient, making a diagnostic and therapeutic plan, discussing this plan with medical personnel, following up on diagnostic studies and following the patient for clinical stability excluding any and all procedures. At least 50% of this time was spent in direct, [id number] contact. Plan discussed with: Patient EDGAR PETTIT MD Sep 12, 2025 23:15
[2025-09-13 01:09] VITALS: BP 128/83; PULSE 62; RESP 19; TEMP 98.3; O2SAT 94
[2025-09-13] MEDS: ASPirin-EC 325mg tab PO ONE (01:16)
--- NOTE | 2025-09-13 19:43 | DVHINCON2 ---
DATE OF CONSULTATION: 09/12/2025 CHIEF COMPLAINT: Coming in for chest pain. HISTORY OF PRESENT ILLNESS: This is a 70-year-old male with significant past medical history for coronary artery disease with multiple prior stents, essential hypertension, hyperlipidemia, history of CVA without residual deficits, hypothyroidism, and chronic angina who presented to the Emergency Room with a chief complaint of chest pain. The patient apparently has been struggling with chest pain symptoms for about 5 months. He does take multiple blood pressure medications including clopidogrel at home. He also takes Imdur 60 mg extended-release 1 tablet a day as well as nitroglycerin sublingual as needed for chest pain symptoms. He does have a corporate development intern that he follows up with on an outpatient basis. He says in the last 5 months, he has been having symptoms of chest pain, kind of dull in nature, retrosternal, sometimes radiating to the left arm, not associated with nausea, vomiting, or shortness of breath. He says that typical any form of exertional activity leads to exertional shortness of breath and sometimes also again achiness in his chest. He has never had any chest pains at rest. He denies any orthopnea symptoms. He does claim that he has some lower extremity swelling at times, but not all the time. He denies any positional changes in his chest pain. He denies any pleuritic chest pain. He denies any fevers or chills. He has not been recently sick. PAST MEDICAL HISTORY: Coronary artery disease, essential hypertension, hyperlipidemia, right knee osteoarthritis, history of CVA without residual deficits, hypothyroidism, chronic angina, partial left eye blindness. PAST SURGICAL HISTORY: Has had left knee replacement surgery, coronary artery disease status post coronary angioplasty with 3 prior stents. SOCIAL HISTORY: Denies any tobacco, alcohol, illicit drugs. MEDICATIONS AT HOME: Per medical reconciliation. MEDICATION ALLERGIES: THE PATIENT HAS AN ADVERSE REACTION TO AMBIEN. REVIEW OF SYSTEMS: A 10-point review of systems was covered with the patient and was negative with the exceptions to what is presented in history of present illness. PHYSICAL EXAMINATION: VITAL SIGNS: Temp 98.3, pulse rate of 62, respiratory rate 19, blood pressure 120/83, pulse ox about 94% on room air. GENERAL: Seems to be alert and oriented x 4, not in acute distress, male sitting up in a chair. HEENT: Normocephalic, atraumatic. Extraocular muscles intact. Pupils are equally round, reactive to light and accommodation. Mucous membranes are moist. CARDIOVASCULAR: S1 and S2 positive. Regular rate and rhythm. No rubs, gallops, or murmurs. LUNGS: Clear to auscultation bilaterally. No wheezing, rhonchi or rales. ABDOMEN: Soft, nontender, and nondistended. Positive bowel sounds. No guarding. No rebound. EXTREMITIES: No lower extremity edema, clubbing, or cyanosis. NEUROLOGIC: No focal deficits. Cranial nerve testing 2-12 overall seems to be intact. LABORATORY WORKUP: Shows a white count of 8.7, H and H 15.6 and 44.3, platelet count of 170,000. Sodium 142, potassium 3.9, creatinine 108, carbon dioxide of 20, anion gap of 14, BUN of 20, creatinine 1.15, calcium 9.4. Troponins of 17. BNP of 47.27. Repeat troponins of 17 and 19. IMAGING: Chest x-ray was completed and shows an acute cardiopulmonary disease process. EKG showed sinus rhythm, ventricular rate of 73 with isolated T wave in V1. No ST depressions or elevations. DIAGNOSIS: Chronic angina. PLAN: The patient was seen in the Emergency Room. Full assessment of the patient was completed. The patient was ruled out for acute coronary syndrome with 3 negative troponins. The patient also had an EKG that showed no ischemic changes. The patient was seen by corporate development intern, Dr. Luis Angel Bhakta, who cleared the patient from a cardiac perspective. The patient to follow up with Dr. Luis Angel Bhakta on Monday at 12:00 noon. Authorization will be placed by [facility]. The patient will require further cardiac risk stratification, which again will be arranged closely for this Monday. The patient otherwise has been informed in case he develops any recurrences of chest pain, nausea, vomiting, shortness of breath, fevers, chills, or any other concerns, signs and/or symptoms, to return to Emergency Room. The patient's again followup will be arranged by [facility] to follow up with Dr. Luis Angel Bhakta's office on 09/15/2025, at 12:00 p.m. Authorization will be placed by [facility]. Geovanny Hall MD LM/MADI TID: [id number] RECEIPT: [id number] JEANETTE
--- NOTE | 2025-09-15 06:40 | ECG ---
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
--- NOTE | 2025-09-15 06:40 | ECG ---
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
--- NOTE | 2025-09-15 06:40 | ECG ---
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
== END 2025-09-13 01:57 | disposition home or self-care (01) ==
LOC: ER 21:04
DX: R07.2 Precordial pain (principal); I25.119 Atherosclerotic heart disease of native coronary artery with unspecified angina pectoris; I25.2 Old myocardial infarction; I10 Essential (primary) hypertension; J44.9 Chronic obstructive pulmonary disease, unspecified; Z79.899 Other long term (current) drug therapy; Z86.73 Personal history of transient ischemic attack (TIA), and cerebral infarction without residual deficits
CPT/HCPCS: 36415; 71045; 80048; 83880; 84484; 85025; 93005